=== PATIENT | male | born 1995 | race Caucasian/White ===

== ENCOUNTER 2022-12-24 13:16 | Emergency (ER) | payer BC, MEDICARE ==
[~2022-12-24] VITALS: Ht 162.6 cm; Wt 93.0 kg
--- NOTE | 2022-12-24 13:20 | NUR ---
Placed in room 06 . Placed on quality assurance monitor body, blood pressure machine and pulse oximeter. To gown for exam. Side rails up. Report given to ARABELLA LAW.
[2022-12-24 13:21] VITALS: BP_SYST 125
--- NOTE | 2022-12-24 13:25 | NUR ---
PT BIB SELF AWAKE AND ALERT AOX4, NO SOB OR DISTRESS. PT C/O L UPPER ARM PAIN FOR X4 DAYS. PT DENIES PAIN NOW. PT DENIES HX.
--- NOTE | 2022-12-24 13:35 | NUR ---
MD DR WEBSTER AT BEDSIDE
[2022-12-24 13:39] VITALS: BP_SYST 135
--- NOTE | 2022-12-24 13:40 | NUR ---
Patient given written and verbal discharge instructions and verbalizes understanding. ER MD DR WEBSTER discussed with patient the results and treatment provided. Patient in stable condition. ID arm band removed. Patient educated on pain management and to follow up with PMD. Pain Scale 0/10. Opportunity for questions provided and answered. Medication side effect fact sheet provided.
== END 2022-12-24 13:40 | disposition home or self-care (01) ==
LOC: SED 13:16
DX: R07.89 Other chest pain (principal); Z91.018 Allergy to other foods; Z79.899 Other long term (current) drug therapy
CPT/HCPCS: 93005; 99283

== ENCOUNTER 2023-02-04 20:10 | Emergency (ER) | payer BC ==
[~2023-02-04] VITALS: Ht 162.6 cm; Wt 94.8 kg
[2023-02-04 20:17] VITALS: BP_SYST 130
--- NOTE | 2023-02-04 20:21 | NUR ---
PPatient triaged and placed in waiting room. VSS and patient appears in no acute distress at this time. Accompanied by SELF, awaiting available bed, and MD notified of need for MSE.
--- NOTE | 2023-02-04 21:27 | NUR ---
Patient to ER bed HB1 to gown for evaluation. Side rails up. Report given to ARABELLA GARZON.
--- NOTE | 2023-02-04 21:40 | NUR ---
ER at bedside examining patient.
--- NOTE | 2023-02-04 22:07 | NUR ---
PT TO CT
[2023-02-04 22:12] LABS: BILIRUBIN,URINE NEGATIVE (NEGATIVE); BLOOD, URINE NEGATIVE (NEGATIVE); CLARITY/URINE CLEAR (CLEAR); COLOR,URINE YELLOW (YELLOW); GLUCOSE,URINE NEGATIVE (NEGATIVE); KETONES,URINE NEGATIVE (NEGATIVE); LEUKOCYTE ESTERASE ,URINE NEGATIVE (NEGATIVE); NITRITE, URINE NEGATIVE (NEGATIVE); PROTEIN URINE NEGATIVE (NEGATIVE); UROBILINOGEN,URINE 0.2 (0.2-1.0)
--- NOTE | 2023-02-04 22:14 | NUR ---
BACK FROM CT
[2023-02-04 22:18] LABS: BASOPHILS # (AUTO) 0.1 K/uL (0.0-0.2); BASOPHILS % (AUTO) 0.5 % (0.0-2.0); EOSINOPHILS # (AUTO) 0.4 K/uL (0.0-0.4); EOSINOPHILS % (AUTO) 3.6 % (0.0-4.0); HEMOGLOBIN 15.2 g/dL (14.0-18.0); LYMPHOCYTES # (AUTO) 3.3 K/uL (1.0-5.5); LYMPHOCYTES % (AUTO) 28.3 % (20.5-51.5); MEAN CORPUSCULAR HEMOGLOBIN 30 pg (27-31); MEAN CORPUSCULAR HGB CONC 35 % (32-36); MEAN CORPUSCULAR VOLUME 87 fL (79.0-98.0); MONOCYTES # (AUTO) 0.8 K/uL (0.0-1.0); NEUTROPHILS # (AUTO) 7.1 K/uL (1.8-7.7); NEUTROPHILS % (AUTO) 60.6 % (40.0-70.0); PLATELET COUNT (AUTO) 283 K/uL (130-430); RED BLOOD CELL COUNT(AUTO) 5.05 MIL/uL (4.2-6.2); RED CELL DISTRIBUTION WIDTH 12.7 % (9.0-15.0); WHITE BLOOD COUNT (AUTO) 11.8 K/uL (4.8-10.8)
[2023-02-04 22:32] LABS: CALCIUM 8.6 mg/dL (8.4-11.0); CREATININE 1.04 mg/dL (0.55-1.30)
[2023-02-04 22:35] LABS: BARBITURATE, URINE NEGATIVE (NEG <=200); BENZODIAZEPINE, URINE NEGATIVE (NEG <=150); CANNABINOID, URINE NEGATIVE (NEG <=50); COCAINE, URINE NEGATIVE (NEG <=150); METHAMPHETAMINES SCREEN,URINE NEGATIVE (NEG <=500); OPIATE, URINE NEGATIVE (NEG <=100); PHENCYCLIDINE SCREEN,URINE NEGATIVE (NEG <=25); UR TRICYCLIC ANTIDEPRESSANTS NEGATIVE (NEG <=300); URINE AMPHETAMINE NEGATIVE (NEG <=500); URINE METHADONE NEGATIVE (NEG <=200); URINE OXYCODONE SCREEN NEGATIVE (NEG <=100); URINE PROPOXYPHENE SCREEN NEGATIVE (NEG <=300)
[2023-02-04 22:37] LABS: ALBUMIN 3.8 g/dL (3.4-4.8); TOTAL BILIRUBIN 0.3 mg/dL (0.0-1.0)
[2023-02-04 23:59] VITALS: BP_SYST 130
--- NOTE | 2023-02-05 | NUR ---
Patient given written and verbal discharge instructions and verbalizes understanding. ER MD discussed with patient the results and treatment provided. Patient in stable condition. ID arm band removed. Patient educated on ABDOMINAL pain management and to follow up with PMD. Pain Scale . Opportunity for questions provided and answered. Medication side effect fact sheet provided.
== END 2023-02-04 23:59 | disposition home or self-care (01) ==
LOC: SED 20:10
DX: R10.30 Lower abdominal pain, unspecified (principal); Z88.6 Allergy status to analgesic agent; Z79.899 Other long term (current) drug therapy
CPT/HCPCS: 36415; 76376; 80053; 80307; 81003; 83690; 85025; 99284

== ENCOUNTER 2023-03-28 19:41 | Emergency (ER) | payer BC ==
[~2023-03-28] VITALS: Ht 160 cm; Wt 94.3 kg
[2023-03-28 19:45] VITALS: RESP 18; TEMP 98.3
[2023-03-28] MEDS ORDERED: DICYCLOMINE HCL 10 MG CAPSULE PO ONE (20:00)
[2023-03-28] MEDS ORDERED: KETOROLAC TROMETHAMINE 15 MG VIAL IM ONE (20:00)
[2023-03-28] MEDS ORDERED: FAMOTIDINE 20 MG TABLET PO ONE (20:00)
[2023-03-28 20:10] LABS: BASOPHILS # (AUTO) 0.1 K/uL (0.0-0.2); BASOPHILS % (AUTO) 0.8 % (0.0-2.0); EOSINOPHILS # (AUTO) 0.3 K/uL (0.0-0.4); EOSINOPHILS % (AUTO) 3.4 % (0.0-4.0); HEMATOCRIT 42.8 % (36-54); HEMOGLOBIN 14.2 g/dL (14.0-18.0); MEAN CORPUSCULAR HEMOGLOBIN 29 pg (27-31); MEAN CORPUSCULAR HGB CONC 33 % (32-36); MEAN CORPUSCULAR VOLUME 88 fL (79.0-98.0); MONOCYTES # (AUTO) 0.9 K/uL (0.0-1.0); NEUTROPHILS # (AUTO) 5.2 K/uL (1.8-7.7); NEUTROPHILS % (AUTO) 54.8 % (40.0-70.0); PLATELET COUNT (AUTO) 237 K/uL (130-430); RED BLOOD CELL COUNT(AUTO) 4.89 MIL/uL (4.2-6.2); RED CELL DISTRIBUTION WIDTH 14.2 % (9.0-15.0); WHITE BLOOD COUNT (AUTO) 9.4 K/uL (4.8-10.8)
[2023-03-28 20:40] LABS: ALANINE AMINOTRANSFERASE 57 U/L (12-78); ANION GAP 8 (5-15); ASPARTATE AMINOTRANSFERASE 30 U/L (10-37); CALCIUM 8.8 mg/dL (8.4-11.0); CHLORIDE 102 mmol/L (98-107); GFR AFRICAN AMERICAN 128 mL/min (>90); GLUCOSE 90 mg/dL (74-106); LIPASE 84 U/L (73-393); TOTAL BILIRUBIN 0.3 mg/dL (0.0-1.0); UREA NITROGEN, BLOOD 18 mg/dL (8-21)
[2023-03-28] MEDS ORDERED: OMEP20CA15 PO (21:24)
[2023-03-28] MEDS ORDERED: ANT30 PO (21:24)
[2023-03-28 21:58] VITALS: BP_SYST 134; PULSE 92; RESP 16; TEMP 98.4; O2SAT 97
== END 2023-03-28 22:02 | disposition home or self-care (01) ==
LOC: SED 19:41
DX: K29.70 Gastritis, unspecified, without bleeding (principal); M77.02 Medial epicondylitis, left elbow; R07.9 Chest pain, unspecified; R20.2 Paresthesia of skin; R42 Dizziness and giddiness; Z91.018 Allergy to other foods; Z79.899 Other long term (current) drug therapy
CPT/HCPCS: 99285; 71045; 80053; 83880; 83690; 85025; 84484; 36415; 93005; 96372; J1885

== ENCOUNTER 2023-06-07 14:20 | Emergency (ER) | payer BC ==
[~2023-06-07] VITALS: Ht 160 cm; Wt 93.0 kg
[~2023-06-07 14:20] MED LIST: ANT30 PO; OMEP20CA15 PO
[2023-06-07 14:30] VITALS: BP_SYST 144; PULSE 75; RESP 18; TEMP 98.3; O2SAT 98
[2023-06-07] MEDS ORDERED: METOCLOPRAMIDE HCL 10 MG/2 ML VIAL IVP ONE (14:45)
[2023-06-07] MEDS ORDERED: MECLIZINE HCL 25 MG TABLET (ANITVERT) PO ONE (14:45)
[2023-06-07 15:09] LABS: BASOPHILS # (AUTO) 0.1 K/uL (0.0-0.2); BASOPHILS % (AUTO) 0.7 % (0.0-2.0); EOSINOPHILS # (AUTO) 0.2 K/uL (0.0-0.4); EOSINOPHILS % (AUTO) 2.4 % (0.0-4.0); HEMATOCRIT 44.6 % (36-54); HEMOGLOBIN 14.9 g/dL (14.0-18.0); LYMPHOCYTES # (AUTO) 3.2 K/uL (1.0-5.5); LYMPHOCYTES % (AUTO) 37.8 % (20.5-51.5); MEAN CORPUSCULAR HEMOGLOBIN 29 pg (27-31); MEAN CORPUSCULAR HGB CONC 34 % (32-36); MEAN CORPUSCULAR VOLUME 87 fL (79.0-98.0); MONOCYTES # (AUTO) 0.6 K/uL (0.0-1.0); MONOCYTES % (AUTO) 7.2 % (1.7-9.3); NEUTROPHILS # (AUTO) 4.4 K/uL (1.8-7.7); NEUTROPHILS % (AUTO) 51.9 % (40.0-70.0); PLATELET COUNT (AUTO) 264 K/uL (130-430); RED BLOOD CELL COUNT(AUTO) 5.11 MIL/uL (4.2-6.2); RED CELL DISTRIBUTION WIDTH 13.6 % (9.0-15.0); WHITE BLOOD COUNT (AUTO) 8.5 K/uL (4.8-10.8)
[2023-06-07 15:28] LABS: ALANINE AMINOTRANSFERASE 64 U/L (12-78); ALBUMIN 4.1 g/dL (3.4-4.8); ANION GAP 9 (5-15); ASPARTATE AMINOTRANSFERASE 25 U/L (10-37); CALCIUM 8.5 mg/dL (8.4-11.0); CARBON DIOXIDE 27 mmol/L (23-29); CHLORIDE 101 mmol/L (98-107); CREATININE 0.91 mg/dL (0.55-1.30); GFR AFRICAN AMERICAN 127 mL/min (>90); GFR NON AFRICAN-AMERICAN 105 mL/min (>90); GLUCOSE 95 mg/dL (74-106); POTASSIUM 4.1 mmol/L (3.5-5.1); SODIUM SERUM 137 mmol/L (136-145); TOTAL BILIRUBIN 0.2 mg/dL (0.0-1.0); TOTAL PROTEIN, SERUM 7.6 g/dL (6.4-8.3); UREA NITROGEN, BLOOD 14 mg/dL (8-21)
[2023-06-07] MEDS ORDERED: MECL-261 PO (16:40)
[2023-06-07] MEDS ORDERED: AZEL137S7 NS (16:45)
[2023-06-07 16:52] VITALS: BP_SYST 134; PULSE 77; RESP 18; TEMP 98.3; O2SAT 98
== END 2023-06-07 16:52 | disposition home or self-care (01) ==
LOC: SED 14:20
DX: R42 Dizziness and giddiness (principal); R11.0 Nausea; Z91.018 Allergy to other foods; Z79.899 Other long term (current) drug therapy
CPT/HCPCS: 99285; 96374; 70450; 71045; 80053; 85025; 84484; 36415; 93005; 76376; J8597; J2765